=== PATIENT | female | born 1990 | race Two or more races ===

== ENCOUNTER 2018-01-30 21:21 | Inpatient (IN) | payer MEDICAID, OTHER ==
[~2018-01-30] VITALS: Ht 165.1 cm; Wt 98.6 kg
[2018-01-30 22:01] LABS: Basophils # (auto) 0.1 uL; Basophils % (auto) 0.9 % (0.0-2.0); Eosinophils # (auto) 0.3 uL; Eosinophils % (auto) 2.5 % (0.0-7.0); Hematocrit 44.6 % (36.0-46.0); Hemoglobin 14.4 g/dL (12.2-16.2); Lymphocytes # (auto) 3.4 uL; Lymphocytes % (auto) 27.2 % (10.0-50.0); Mean Corpuscular Hemoglobin 28.2 pg (28.0-32.0); Mean Corpuscular Hgb Conc. 32.2 g/dL (32.0-36.0); Mean Corpuscular Volume 87.6 fL (80.0-100.0); Monocytes # (auto) 1.1 uL; Monocytes % (auto) 8.9 % (0.0-12.0); Neutrophils # (auto) 7.7 uL; Neutrophils % (auto) 60.5 % (37.0-80.0); Nucleated Red Blood Cells % 0.1 %; Platelet Count (auto) 210 10^3/uL (140-450); Red Blood Cells 5.09 10^6/uL (4.0-5.20); Red Cell Distribution Width 15.5 % (11.8-14.3); White Blood Cell 12.6 10^3/uL (4.4-10.8)
[2018-01-30 22:12] LABS: Urine Amorphous Crystal FEW /hpf (None Seen); Urine Bacteria NONE SEEN /hpf (None Seen); Urine Blood Negative /uL (Negative); Urine WBC 2 /hpf (0 - 5)
[2018-01-30 22:35] LABS: Albumin 3.5 g/dL (3.4-5.0); BUN/Creatinine Ratio 26.1; Bilirubin, Total 0.4 mg/dL (0.2-1.0); Calcium 8.8 mg/dL (8.5-10.1); Magnesium 2.5 mg/dL (1.6-2.6); Potassium 4.2 mmol/L (3.5-5.1); Total Protein 8.4 g/dL (6.4-8.2)
[2018-01-30] MEDS ORDERED: ASPirin 325 MG TAB PO ONE (23:15)
[2018-01-30 23:33] LABS: Alcohol, Urine < 3.0 mg/dL (0-5); Amphetamine Screen, Urine NEGATIVE (NEGATIVE); Barbiturate Scree,Urine NEGATIVE (NEGATIVE); Benzodiazephine Screen, Urine NEGATIVE (NEGATIVE); Cannabinoid Screen, Urine NEGATIVE (NEGATIVE); Cocaine Screen, Urine NEGATIVE (NEGATIVE); Opiate Scree,Urine NEGATIVE (NEGATIVE); Phencyclidine Screen, Urine NEGATIVE (NEGATIVE)
[2018-01-31] MEDS ORDERED: cefTRIAXone 1GM/10ml IVPUSH 10 ML IV ONE (00:15)
[2018-01-31] MEDS ORDERED: MORPHINE SULFATE 4 MG/ML SYR/VIAL IV PRN (04:45)
[2018-01-31] MEDS ORDERED: NITROGLYCERIN 0.4 MG SL TAB SL PRN (04:45)
[2018-01-31] MEDS ORDERED: ONDANSETRON HCL 4 MG/2 ML VIAL IV PRN (07:15)
[2018-01-31] MEDS ORDERED: ACETAMINOPHEN 500 MG TAB PO PRN (07:15)
[2018-01-31] MEDS ORDERED: DOFE1CAP (08:58)
[2018-01-31] MEDS ORDERED: APIX5TAB (08:58)
[2018-01-31] MEDS ORDERED: METO25TA62 (08:58)
[2018-01-31] MEDS ORDERED: BENA5TAB5 PO (09:00)
[2018-01-31] MEDS: METOPROLOL SUCCINATE XL 50 MG TAB PO SCH (10:00)
[2018-01-31] MEDS: ENOXAPARIN SOD 100 MG/1 ML SYRINGE SC SCH (10:03)
[2018-01-31] MEDS ORDERED: AMIODARONE HCL 200 MG TAB PO ONE (11:45)
[2018-01-31 17:09] VITALS: BP 103/70
[2018-01-31] MEDS: DOFETILIDE 500 MCG PO SCH (21:38)
[2018-01-31] MEDS: cefTRIAXone 1GM/10ml IVPUSH 10 ML IV SCH (21:38)
[2018-01-31] MEDS: AMIODARONE HCL 200 MG TAB PO SCH (21:39)
[2018-01-31] MEDS ORDERED: PATIENTS OWN MEDICATION PO SCH (22:00)
[2018-01-31 22:19] VITALS: BP 91/75
[2018-02-01] VITALS (8 sets, daily range): BP systolic 92–105; BP diastolic 64–76
[2018-02-01 06:28] LABS: Basophils # (auto) 0 uL; Basophils % (auto) 0.5 % (0.0-2.0); Eosinophils # (auto) 0.2 uL; Eosinophils % (auto) 2.8 % (0.0-7.0); Hematocrit 39.6 % (36.0-46.0); Hemoglobin 13.2 g/dL (12.2-16.2); Lymphocytes # (auto) 2.4 uL; Lymphocytes % (auto) 28.2 % (10.0-50.0); Mean Corpuscular Hemoglobin 29.3 pg (28.0-32.0); Mean Corpuscular Hgb Conc. 33.4 g/dL (32.0-36.0); Mean Corpuscular Volume 87.6 fL (80.0-100.0); Monocytes % (auto) 11.5 % (0.0-12.0); Neutrophils # (auto) 4.8 uL; Nucleated Red Blood Cells % 0.1 %; Platelet Count (auto) 164 10^3/uL (140-450); Red Blood Cells 4.52 10^6/uL (4.0-5.20); Red Cell Distribution Width 15.2 % (11.8-14.3); White Blood Cell 8.3 10^3/uL (4.4-10.8)
[2018-02-01] MEDS: AMIODARONE HCL 200 MG TAB PO SCH (06:30)
[2018-02-01 06:55] LABS: Albumin 3.1 g/dL (3.4-5.0); BUN/Creatinine Ratio 22.9; Bilirubin, Total 0.5 mg/dL (0.2-1.0); Calcium 8.5 mg/dL (8.5-10.1); Potassium 3.9 mmol/L (3.5-5.1); Total Protein 7.3 g/dL (6.4-8.2)
[2018-02-01] MEDS: DOFETILIDE 500 MCG PO SCH ×2 (09:34→21:22)
[2018-02-01] MEDS: ENOXAPARIN SOD 100 MG/1 ML SYRINGE SC SCH (09:34)
[2018-02-01] MEDS: METOPROLOL SUCCINATE XL 50 MG TAB PO SCH (09:34)
[2018-02-01] MEDS ORDERED: ADENOSINE 79 MG in GIVE UN-DILUTED 0 ML IV STA (11:23)
[2018-02-01] MEDS: cefTRIAXone 1GM/10ml IVPUSH 10 ML IV SCH (21:22)
[2018-02-02 05:00] VITALS: BP 99/63
[2018-02-02 07:20] LABS: BUN/Creatinine Ratio 31.8; Calcium 8.5 mg/dL (8.5-10.1); Potassium 3.7 mmol/L (3.5-5.1)
[2018-02-02 07:26] LABS: Basophils # (auto) 0 uL; Basophils % (auto) 0.4 % (0.0-2.0); Eosinophils # (auto) 0.3 uL; Eosinophils % (auto) 3.6 % (0.0-7.0); Hematocrit 39.6 % (36.0-46.0); Lymphocytes # (auto) 2.1 uL; Lymphocytes % (auto) 26.8 % (10.0-50.0); Mean Corpuscular Hemoglobin 28.9 pg (28.0-32.0); Mean Corpuscular Hgb Conc. 32.9 g/dL (32.0-36.0); Mean Corpuscular Volume 87.8 fL (80.0-100.0); Monocytes # (auto) 0.9 uL; Monocytes % (auto) 11.6 % (0.0-12.0); Neutrophils # (auto) 4.5 uL; Neutrophils % (auto) 57.6 % (37.0-80.0); Nucleated Red Blood Cells % 0.1 %; Platelet Count (auto) 147 10^3/uL (140-450); Red Blood Cells 4.51 10^6/uL (4.0-5.20); Red Cell Distribution Width 15.1 % (11.8-14.3); White Blood Cell 7.8 10^3/uL (4.4-10.8)
[2018-02-02] MEDS: DOFETILIDE 500 MCG PO SCH ×2 (08:43→21:37)
[2018-02-02] MEDS: METOPROLOL SUCCINATE XL 50 MG TAB PO SCH ×3 (08:43→21:37)
[2018-02-02] MEDS: ENOXAPARIN SOD 100 MG/1 ML SYRINGE SC SCH (08:43)
[2018-02-02 09:00] VITALS: BP 100/68
[2018-02-02 13:00] VITALS: BP 92/70
[2018-02-02 17:00] VITALS: BP 105/72
[2018-02-02] MEDS: cefTRIAXone 1GM/10ml IVPUSH 10 ML IV SCH (21:37)
[2018-02-02 23:31] VITALS: BP 94/56
[2018-02-03] VITALS (7 sets, daily range): BP systolic 96–106; BP diastolic 62–76
[2018-02-03 07:16] LABS: BUN/Creatinine Ratio 21.2; Bilirubin, Total 0.4 mg/dL (0.2-1.0); Calcium 8.5 mg/dL (8.5-10.1); Potassium 3.9 mmol/L (3.5-5.1); Total Protein 7.2 g/dL (6.4-8.2)
[2018-02-03] MEDS: ENOXAPARIN SOD 100 MG/1 ML SYRINGE SC SCH (10:00)
[2018-02-03] MEDS: METOPROLOL SUCCINATE XL 50 MG TAB PO SCH ×2 (10:00→21:27)
[2018-02-03] MEDS: DOFETILIDE 500 MCG PO SCH ×2 (10:16→21:27)
[2018-02-03] MEDS ORDERED: LIDOCAINE 2%HCL (LOCAL ANESTH.) INJ 20ML MDV ONE (13:30)
[2018-02-03] MEDS ORDERED: IODIXANOL 320MG/ML 100ML BTL IV ONE (13:30)
[2018-02-03] MEDS ORDERED: MIDAZOLAM HCL 1MG/1ML-2 ML VIAL ONE (13:54)
[2018-02-03] MEDS ORDERED: fentaNYL CITRATE 100 MCG/2 ML VL ONE (13:54)
[2018-02-03] MEDS: HYDROcodone-ACET 5/325MG TAB PO PRN ×2 (17:26→23:17)
[2018-02-03] MEDS: cefTRIAXone 1GM/10ml IVPUSH 10 ML IV SCH (21:28)
[2018-02-04 05:00] VITALS: BP 87/52
[2018-02-04 05:55] LABS: Basophils # (auto) 0 uL; Basophils % (auto) 0.5 % (0.0-2.0); Eosinophils # (auto) 0.3 uL; Eosinophils % (auto) 4.2 % (0.0-7.0); Hematocrit 39.8 % (36.0-46.0); Hemoglobin 12.8 g/dL (12.2-16.2); Lymphocytes # (auto) 2.6 uL; Lymphocytes % (auto) 31.3 % (10.0-50.0); Mean Corpuscular Hemoglobin 28.9 pg (28.0-32.0); Mean Corpuscular Hgb Conc. 32.2 g/dL (32.0-36.0); Mean Corpuscular Volume 89.9 fL (80.0-100.0); Monocytes # (auto) 0.9 uL; Monocytes % (auto) 11.3 % (0.0-12.0); Neutrophils # (auto) 4.3 uL; Neutrophils % (auto) 52.7 % (37.0-80.0); Nucleated Red Blood Cells % 0.1 %; Platelet Count (auto) 145 10^3/uL (140-450); Red Blood Cells 4.43 10^6/uL (4.0-5.20); Red Cell Distribution Width 15.6 % (11.8-14.3); White Blood Cell 8.2 10^3/uL (4.4-10.8)
[2018-02-04 05:56] LABS: Albumin 2.9 g/dL (3.4-5.0); Bilirubin, Total 0.4 mg/dL (0.2-1.0); Calcium 8.4 mg/dL (8.5-10.1); Magnesium 2.2 mg/dL (1.6-2.6); Potassium 3.7 mmol/L (3.5-5.1); Total Protein 6.8 g/dL (6.4-8.2)
[2018-02-04 08:00] VITALS: BP 93/62
[2018-02-04 09:00] VITALS: BP 93/62
[2018-02-04] MEDS: METOPROLOL SUCCINATE XL 50 MG TAB PO SCH ×2 (09:15→22:58)
[2018-02-04] MEDS: DOFETILIDE 500 MCG PO SCH ×2 (09:15→22:00)
[2018-02-04] MEDS: ENOXAPARIN SOD 100 MG/1 ML SYRINGE SC SCH (09:16)
[2018-02-04] MEDS ORDERED: METOPROLOL SUCCINATE XL 50 MG TAB PO SCH (10:00)
[2018-02-04] MEDS ORDERED: METOPROLOL SUCCINATE XL 50 MG TAB PO ONE (11:00)
[2018-02-04 13:00] VITALS: BP 94/56
[2018-02-04] MEDS: AMIODARONE HCL 200 MG TAB PO SCH ×2 (15:22→22:56)
[2018-02-04 17:06] VITALS: BP 104/85
[2018-02-04] MEDS ORDERED: POTASSIUM CHL 10% (20 MEQ/15ML) 15ml ORAL SOLN PO ONE (18:00)
[2018-02-04 21:50] VITALS: BP 103/65
[2018-02-05 05:23] VITALS: BP 91/64
[2018-02-05 06:42] LABS: BUN/Creatinine Ratio 18.2; Calcium 8.3 mg/dL (8.5-10.1); Magnesium 2.1 mg/dL (1.6-2.6)
[2018-02-05 09:00] VITALS: BP 106/68
[2018-02-05] MEDS: DOFETILIDE 500 MCG PO SCH (10:00)
[2018-02-05] MEDS: AMIODARONE HCL 200 MG TAB PO SCH (10:48)
[2018-02-05] MEDS: ENOXAPARIN SOD 100 MG/1 ML SYRINGE SC SCH (10:49)
[2018-02-05] MEDS: METOPROLOL SUCCINATE XL 50 MG TAB PO SCH (10:49)
[2018-02-05 13:00] VITALS: BP 98/59
[2018-02-05 14:29] VITALS: BP 98/59
== END 2018-02-05 15:34 | disposition home or self-care (01) | DRG 192 ==
LOC: ER 21:23 → TELE 21:24 → TELE-CENTR 01-31 15:58
PROVIDERS: ADMIT Nurse Practitioner Family; ATTEND Internal Medicine
PROC: 4A023N7 Measurement of Cardiac Sampling and Pressure, Left Heart, Percutaneous Approach (ICD-10-PCS; principal; 2018-02-03)
PROC: B2111ZZ Fluoroscopy of Multiple Coronary Arteries using Low Osmolar Contrast (ICD-10-PCS; 2018-02-03)
PROC: B2151ZZ Fluoroscopy of Left Heart using Low Osmolar Contrast (ICD-10-PCS; 2018-02-03)
PROC: 4B02XTZ Measurement of Cardiac Defibrillator, External Approach (ICD-10-PCS; 2018-02-05)
DX: I47.1 Supraventricular tachycardia (principal); I21.A1 Myocardial infarction type 2; I47.2 Ventricular tachycardia; I50.31 Acute diastolic (congestive) heart failure; I42.0 Dilated cardiomyopathy; Z86.74 Personal history of sudden cardiac arrest; I48.92 Unspecified atrial flutter; I44.7 Left bundle-branch block, unspecified; N39.0 Urinary tract infection, site not specified; I25.10 Atherosclerotic heart disease of native coronary artery without angina pectoris; I08.1 Rheumatic disorders of both mitral and tricuspid valves; I48.0 Paroxysmal atrial fibrillation; I49.9 Cardiac arrhythmia, unspecified; I48.91 Unspecified atrial fibrillation; Z95.810 Presence of automatic (implantable) cardiac defibrillator; Z83.3 Family history of diabetes mellitus; Z86.79 Personal history of other diseases of the circulatory system
CPT/HCPCS: 36415; 71046; 80048; 80053; 80307; 81001; 81025; 83735; 83880; 84443; 84484; 85025; 93005; 93017; 93306; 93458; 96372; 96374; 99152; J0153; J2250; Q9967